=== PATIENT | female | born 1970 | race Caucasian/White ===

== ENCOUNTER → 2017-08-13 | Outpatient (CLI) | payer BC | LOC: FIMAGING 11:55 | PROVIDERS: ATTEND Family Medicine | DX: M79.642 Pain in left hand (principal) ==

== ENCOUNTER → 2017-08-14 | Outpatient (CLI) | payer BC | LOC: CIMAGING 16:26 | PROVIDERS: ATTEND Family Medicine | DX: R10.9 Unspecified abdominal pain (principal); N83.01 Follicular cyst of right ovary | CPT/HCPCS: 76856-PO ==

== ENCOUNTER → 2017-08-22 | Outpatient (CLI) | payer BC ==
[~2017-08-22] MED LIST: IOPAMIDOL (ISOVUE-300) 100 ML BTL ONE
== END ==
LOC: CIMAGING 10:20
PROVIDERS: ATTEND Family Medicine
DX: K80.20 Calculus of gallbladder without cholecystitis without obstruction (principal); K59.00 Constipation, unspecified; M51.36 Other intervertebral disc degeneration, lumbar region; M89.38 Hypertrophy of bone, other site
CPT/HCPCS: 74177-PO; Q9967